=== PATIENT | male | born 1960 | race Caucasian/White ===

== ENCOUNTER → 2017-04-11 | Day surgery (SDC) | payer BC ==
[~2017-04-11] VITALS: Ht 170.2 cm; Wt 70.5 kg
[~2017-04-11] MED LIST: AMPICILLIN/SULBAC 3 GM/NS 100 ML IV PRN; ASPI81TA23 PO; CHLORHEXIDINE GLUCONATE 2 % 1 PACK (2 CLOTHS) TOPICAL PRN; DOXY25TA PO; ESTA2TAB PO; FINA5TAB2 PO; HYDROmorphone HCL PF 0.5 MG/0.5 ML SYRINGE ONE; INSULIN HUMAN REGULAR 1,000 UNITS/10 ML VIAL SQ PRN; LACTATED RINGER'S 1000 ML IV PRN; LIDOCAINE 0.5%/EPINEPHrine 1:200,000 SOLN 50 ML VIAL ONE; METOPROLOL TARTRATE 25 MG TAB PO PRN; MORPHINE SULFATE 2 MG/ML INJ ONE; OXYMETAZOLINE HCL 0.05% 15 ML NASAL SPRAY ONE; POVIDONE IODINE 5% (ANTISEPSIS KIT) 4 APPLICATIONS EACH NARE PRN; SODIUM CHLORID 0.9% 500 ML IV PRN; SUGAMMADEX SODIUM 200 MG/2 ML VIAL IV PUSH ONE
--- NOTE | 2017-04-11 07:27 | EKG ---
Date Performed: 04/11/2017 Time Performed: 06:48:03 PTAGE: 56 years EKG: SINUS BRADYCARDIA BORDERLINE ECG NO PREVIOUS TRACING DOCTOR: Andreas Moreno Interpretating Date/Time 04/11/2017 07:26:08
[2017-04-11 08:55] VITALS: BP 133/85; PULSE 67; RESP 15; TEMP 97.8; O2SAT 100
--- NOTE | 2017-04-17 07:02 | MP ---
cc: JABIER MEJIA M.D. DATE OF SURGERY April 11, 2017 SURGEON Jabier Mejia MD PREOPERATIVE DIAGNOSES 1. Nasal airway obstruction. 2. Nasal septal deviation. 3. Hypertrophy of inferior turbinates. POSTOPERATIVE DIAGNOSES 1. Nasal airway obstruction. 2. Nasal septal deviation. 3. Hypertrophy of inferior turbinates. OPERATION PERFORMED 1. Open repair nasal septal fracture. 2. Bilateral submucosal resection of inferior turbinates. INDICATIONS Indications are documented in the history and physical. DESCRIPTION OF OPERATION The patient was taken to OR #2 and placed in the supine position. Following induction of general anesthesia and intubation the nose was packed bilaterally with cotton pledgets saturated in 0.05% oxymetazoline. The nasal septal mucosa and inferior turbinates were then injected with a total of 8 mL of 1% Xylocaine with epinephrine 1:100,000. He was then prepped and draped for surgery. Packing was removed and a hemitransfixion incision was made in the left nasal vestibule and through this incision the septal mucosa was elevated bilaterally as far as the junction of the bony and cartilaginous septum. This exposed the quadrangular cartilage which showed evidence of old septal fracture with numerous comminuted fragments extending into the nasal airway bilaterally obstructing the nasal airway. A cumulative area of 2 x 2.5-cm was removed in a piecemeal fashion using Patrick elevator and Lavell-Hernández forceps. This was completed preserving 1.5 cm dorsal and caudal cartilaginous struts. The mucosa was elevated from the bony septum and the maxillary crest and these were removed using Lavell-Hernández forceps on the bony septum and a 6-mm Maikol chisel on the maxillary crest. The anterior nasal spine was preserved during this process. The original incision was then closed using running suture of 4-0 chromic and the mucosal layers of septum were then approximated to each other with a quilting stitch of 4-0 plain gut. The inferior turbinates were then fractured out medially and stab incisions were opened along their inferior surfaces. Through these incisions the submucosal soft tissue was reduced using a curette and preserving the conchal bone. The incisions were then cauterized with a suction Bovie at 35 mclaughlin and the remnants of the inferior turbinates were then relateralized to the lateral nasal wall. The nose was then packed with 5.5-cm Rapid Rhino packs, each one filled with 5 mL of air. The procedure was then terminated and the patient was reversed from anesthesia and taken to Recovery in good condition. There were no complications. Blood loss was 60 mL. MD JUANCHO Winslow/SEAN /1:56 PM /6:50 AM
== END | disposition home or self-care (01) ==
LOC: PHSDC 06:09
PROVIDERS: ATTEND Otolaryngology
DX: J34.2 Deviated nasal septum (principal); J34.3 Hypertrophy of nasal turbinates; S02.2XXA Fracture of nasal bones, initial encounter for closed fracture; R06.83 Snoring; R09.81 Nasal congestion; R55 Syncope and collapse; Z01.810 Encounter for preprocedural cardiovascular examination
CPT/HCPCS: 00160; 30130; 30520; 93005; J0295; J1170; J2270; J7120